=== PATIENT | male | born 1995 | race Caucasian/White ===

== ENCOUNTER 2025-07-16 09:16 | Emergency (ER) | payer BC, SELFPAY ==
--- OUTSIDE RECORDS SUMMARY | 2025-07-16 09:21 | XMS_ITS | Clinical Summary ---
Author Organization [facility] [address] Address [address] [place] [address] Phone Care Team Providers Care Globe Cleaner Name Role Phone GautamLewis ontiveros Ashlyn BROOKS Primary Care Provider [phone] Allergies Active Allergy Reactions Criticality Noted Date Comments Nickel Medications timolol (TIMOPTIC) 0.5 % ophthalmic solution 11/06/2020 Active penicillin v potassium (VEETID) 500 mg tabletIndication s:Other (complete free text reason below),Sore throat, exposure to strep Take 1 tablet (500 mg total) by mouth 4 (four) times a day for 7 days 28 tablet 07/10/2025 5 Active Active Problems Problem Noted Date Diagnosed Date Scrotal pain 04/03/2025 SETH (generalized anxiety disorder) 05/09/2024 Assessment & Plan (12/23/2024 7:02 PM CDT): CHRONIC AND STABLE OFF OF WELLBUTRIN NOW AND DOING WELL Assessment & Plan (05/09/2024 12:27 PM CDT): CHRONIC WILL CONTINUE WELLBUTRIN XL 150 MG PO QDAY HE HAS NOT NOTCIED ANY IMRPVMENTS MAY BE SUBLTE CHANGES DISCUSSED TO CONTINUE THE MED FOR ANOTHER 2 WEEKS BEFORE INCREASING THE DOSAGE TO 300 MG PO QDAY Benign paroxysmal positional vertigo due to bilateral vestibular disorder 05/09/2024 Assessment & Plan (12/23/2024 7:01 PM CDT): CHRONIC AND STABLE Assessment & Plan (05/09/2024 12:27 PM CDT): PERIPHERAL CAUSE IS SUSPECTED NEG MRI OF THE HEAD REFER TO ENT FOR FURTHER EVAL Tick bite of right deltoid region 01/04/2024 Assessment & Plan (01/04/2024 5:26 PM CDT): Tick was removed within a day There are no systemic symptoms Area examined did not show any remenants Topical cortisone would be ok for the time being Wearing long sleeves clothes / premthrin is ok and using topical cortisone prn is ok as well Throat irritation 01/04/2024 Assessment & Plan (01/04/2024 5:27 PM CDT): Symptoms are c/w LPR although there is no voice changes or loss / not typical symptoms of gerd trial of pepcid 20 mg po qam for at least one -two weeks if no improvement will refer to ent Rectal bleeding 07/01/2023 BP check 07/01/2023 Assessment & Plan (01/04/2024 5:30 PM CDT): Discussed intermittent fasting may be from 11 am to 7 pm, increase fluid / water intake aim for around 80 ounces of water daily , avoid eating after 7 pm and avoid alcohol he does drink beer may be around 6 over the weekend . Last three BP readings have been NL goal is 140/90 or less at this time/ discussed getting a bp machine at home check bp bid and call back with readings Viral pharyngitis 06/24/2022 Assessment & Plan (06/24/2022 9:28 AM SURVEY STATISTICIAN): Acute problem, present times about 5 days Physical examination as documented - no signs/symptoms of serious illness noted COVID 19 and influenza A/B in office - ALL negative Recommended supportive measures Orders for AMS STAFF to arrange None at this time Orders for Zaki Dupree to arrange Continue OTC cold/pain medications Start twice daily antihistamines to help with middle ear pressure/ache - nonsedating in the morning (Dorita, Zyrtec, or Claritin) and Benadryl at night; take twice daily during acute symptoms, up to 2 weeks, then decrease to once daily Consider starting OTC Flonase spray once daily to help with congestion and nasopharyngeal inflammation Consider lozenges for sore throat Consider warm tea with honey for sore throat Continue monitoring symptoms - report worsening or other concerning symptoms to the office Follow up as scheduled with Dr. Florez or sooner if necessary Lightheadedness 02/20/2021 Overview (02/20/2021): daily mri of the head neg refer to neurology trial of pamelor 10 mg po qhs Assessment & Plan (07/01/2024 9:04 AM SURVEY STATISTICIAN): 64 ounces of caffeine free and soda free fluid daily Good nutrition Multi-vitamin daily Assessment & Plan (02/20/2021 8:50 AM CDT): Patient describes a 1 year history of fluctuant but continuous lightheadedness. He knows of no alleviating or exacerbating factors. He has a normal neurologic examination in to date has had normal MRI imaging of the brain as well. I will check an MR angiogram of the brain to exclude vertebral basilar insufficiency as a potential etiology from a neurological standpoint. If unrevealing he may need cardiology evaluation as well of his PCP's preference. I will see him back in the office upon completion of testing. Tremor 02/20/2021 Assessment & Plan (02/20/2021 8:51 AM CDT): Patient describes a episodic tremor in the right hand only precipitated by writing. No evident tremor is seen today either spontaneous or inducible in the right hand. His historical description would be suggestive of a benign action tremor. I will check TSH and T4 to exclude thyroid abnormality as a potential etiology. If unrevealing observation would be most appropriate from the neurological standpoint as his tremor does not appear to be symptomatically debilitating. Routine physical examination 07/07/2018 Assessment & Plan (03/26/2024 12:32 PM CDT): IMMUNIZATIONS WERE REVIEWED TODAY DIETARY COUNSELLING FOR LEVEL 3 OBESITY SKIN ASSESSMENT NO SUSPICIOUS SKIN LESIONS SETH : WITH ASSOCIATED SYMPTOMS INCLUDING LIGHTHEAEDNESS AND VERTIGO TRIAL OF WELL BUTRIN XL 150 MG PO QAM RTC IN SIX WEEKS FOR A F/U MEANWHILE OK TO DO COUNSELLING Encounters Date Type Department Care Team Description 07/10/2025 Telephone [facility] [address] [place] [address] Lewis Florez MD from Last 3 Months Immunizations Immunization Administration Dates Next Due DTP 12/29/1998, 5,03/07/1994,01/24,1993 HPV, Quadrivalent 03/22/2012,01/01/2012 Hep A, Pediatric 10/24/2005,03/17/2005 Hep B, Adolescent or Pediatric 03/07/1994,1993,1993 HiB 07/24/1995, 4,01/24/1994,11/08 Influenza, Quadrivalent, Spl it, Preservative Free, Intramuscular 10/11/2022 Influenza, Unspecified 06/09/2024(Deferr ed: Patient Refused),06/04/2023(Deferred: Patient Refused) MMR 10/27/1997,09/20/1994 Meningococcal MCV4P (Menactra) 01/16/2011,2007 OPV 12/29/1998, 5,03/07/1994,01/24,1993 Td, adsorbed 03/17/2005 Tdap 10/11/2022,03/22/2012,10/24/2005 Varicella 03/11/2007,07/24/1995 Surgical History Surgery Date Site/Laterality Comments ORAL SURGERY COLONOSCOPY 09/11/2023 Medical History Medical History Date Comments Pigment dispersion syndrome of both eyes Family History Medical History Relation Name Comments Hypertension Father No Known Problems Mother Relation Name Status Comments Father Alive Mother Alive Social History Tobacco Use Types Packs/Day Years Used Date Smoking Tobacco: Never Smokeless Tobacco: Never Tobacco Cessation:Counseling Given: Not Answered Alcohol Use Standard Drinks/Week Comments Not Currently 0 (1 standard drink = 0.6 oz pur e alcohol) PHQ-2 Answer Date Recorded PHQ-2 Total Score (If total score is 3 or more points, staff should administer the PHQ-9) 0 04/03/2025 Personal Safety Answer Date Recorded Have you ever been in or are you currently in a harmful physical or emotional relationship or is someone making you feel afraid or unsafe? Denies 09/11/2023 Sex and Gender Information Value Date Recorded Sex Assigned at Not on file Legal Sex Male 2:14 PM SURVEY STATISTICIAN Gender Identity Male 08/27/2020 10:09 AM SURVEY STATISTICIAN Sexual Orientation Straight 08/27/2020 10 :09 AM SURVEY STATISTICIAN Last Filed Vital Signs Vital Sign Reading Time Taken Comments Blood Pressure 112/70 04/03/2025 1:07 PM CDT Pulse 75 04/03/2025 1:07 PM CDT Temperature 36.8 C (98.2 F) 04/03/2025 1:07 PM CDT Respiratory Rate 16 04/03/2025 1:07 PM CDT Oxygen Saturation 97% 04/03/2025 1:07 PM CDT Inhaled Oxygen Concentration - - Weight 121.7 kg (268 lb 6.4 oz) 04/03/2025 1:07 PM CDT Height 182.9 cm (6') 04/03/2025 1:07 PM CDT Body Mass Index 36.4 04/03/2025 1:07 PM CDT Plan of Treatment Health Maintenance Due Date Last Done Comments HPV Vaccines (3 - Male 3-dose series) 07/03/2012 03/22/2012, 01/01/2012 Regular Well Visit/Exam 18-64 03/25/2025 03/25/2024, 03/23/2023, 03/21/2022, Additional history exists Covid-19 Vaccine (3 - season) 2025 07/16/2021, 06/10/2021 Influenza Vaccine (#1) 2025 10/11/2022 Depression Screening 04/03/2026 04/03/2025, 03/25/2024, 03/21/2022 DTaP/Tdap/Td Vaccine (9 - Td or Tdap) 10/11/2032 10/11/2022, 03/22/2012, 10/24/2005, Additional history exists Hepatitis B Screening Completed 03/07/1994 , 1993, 1993 Varicella Vaccines Completed 03/11/2007, 07/24/1995 Hepatitis C Screening Completed 03/12/2015 Pneumococcal vaccine <65 Aged Out No longer eligible based on patient's age to complete this topic Procedures Procedure Name Priority Date/Time Associated Diagnosis Comments SERUM HEPATITIS C AB Routine 03/12/2015 4:36 PM CDT from Last 3 Months or Most Recently Relevant to Health Maintenance Results * Serum Hepatitis C ab (03/12/2015 4:36 PM CDT) HCV ab Negative Negative HISTORICAL RESULTS Serum 03/12/2015 4:36 PM CDT Lewis Florez MD LAB BLOOD ORDERABLES Final Result HISTORICAL RESULTS from Last 3 Months or Most Recently Relevant to Health Maintenance [place] [employer] [place] [employer] [place] [facility] [employer] [facility] Advance Directives For more information, please contact: [phone] * Full Code (Latest Code Status on File) Date Activated Date Inactivated Comments 09/11/2023 9:13 AM 09/11/2023 4:12 PM * Full Code Date Activated Date Inactivated Comments 09/11/2023 9:13 AM 09/11/2023 9:13 AM Care Teams Globe Cleaner Relationship Specialty Start Date End Date Lewis Florez MD [address] [place] [address] PCP - General 12/15/12
[2025-07-16 09:22] VITALS: BP 141/79; PULSE 57; RESP 20; TEMP 36.5; O2SAT 99
--- NOTE | 2025-07-16 09:33 | ED.EYEPROB ---
HPI - Eye Problem General Chief complaint: Eye Problems Stated complaint: poss pink eye Time Seen by Provider: 07/16/25 09:30 Source: patient and RN notes reviewed Mode of arrival: ambulatory Limitations: no limitations History of Present Illness HPI Narrative: 29-year-old male patient presents Express Care complaining of possible pinkeye to both of his eyes. Patient said symptoms started about 3 days ago in his left eye reports discharge, crusty eyes, redness, irritation, this morning woke up with symptoms in his right eye. Patient denies any vision changes, vision problems, pain, headaches, nausea vomiting, diarrhea, fevers, body aches, chills, any other upper respiratory symptoms. Patient is currently on penicillin for strep throat. Patient has a history of eye pigment disorder. Related Data Home Medications ?Medication ?Instructions ?Recorded ?Confirmed ?Last Taken ?Type penicillin V potassium 500 mg mg 07/16/25 Unknown History tablet timolol maleate 0.5 % eye drops drp 07/16/25 Unknown History Allergies Allergy/AdvReac Type Severity Reaction Status Date / Time No Known Allergies Allergy Verified 07/16/25 09:27 Review of Systems Review of Systems: CONSTITUTIONAL: Denies fever, chills, or sweats. EYES: Denies visual changes, photophobia, blurry vision, double vision. Positive for redness and discharge. ENT: Denies rhinorrhea, congestion, sore throat, or otalgia. CARDIOVASCULAR: Denies chest pain, palpitations, or edema. RESPIRATORY: Denies cough or dyspnea. GASTROINTESTINAL: Denies abdominal pain, nausea, vomiting, or diarrhea. GENITOURINARY: Denies dysuria or hematuria. SKIN: Denies rash or itching. MUSCULOSKELETAL: Denies back pain, joint pain, or myalgia. NEUROLOGIC: Denies headache, numbness, or weakness. PSYCHIATRIC: Denies anxiety or depression. All other systems reviewed are negative, except as documented in HPI. PMFSH Comments At the time of my signature, I reviewed and agree with the nursing past medical, surgical, social, and family history. There is no relevant family history pertinent to the patient complaint. Exam Narrative: GENERAL: This is a well-nourished, well-developed adult, in no apparent distress. They are non ill-appearing, nontoxic appearing. HEAD: normocephalic, atraumatic. EYES: Sclera clear/white. Conjunctiva injected bilaterally. No obvious discharge. Vision is grossly intact. Extraocular movements intact. Pupils PERRLA EARS: External ears normal, auditory canals clear and without drainage, TMs normal without perforation. Hearing grossly intact. NOSE: External nose normal with no obvious nasal discharge, nasal turbinates without redness, no rhinorrhea. THROAT: Mucous membranes moist, posterior pharynx clear, without erythema or swelling. Uvula midline. Postnasal drip present. NECK: Neck supple, non-tender without lymphadenopathy, masses or thyromegaly. CARDIOVASCULAR: Regular rate and rhythm RESPIRATORY: Respiratory rate normal, respiratory effort nonlabored, no respiratory distress SKIN: warm, Dry, intact with no suspicious lesions or rash, good texture and turgor. NEURO: awake, alert, and oriented to person, place and time. There were no obvious focal neurologic abnormalities. EXTREMITIES: No joint tenderness, effusion, or edema noted. BACK: Nontender without deformity. Course Course Emergency Course: Portions of this record may have been created with voice recognition software Level of Care: Express Care Visit Vital Signs Vital signs: Vital Signs Temperature 97.7 F 07/16/25 09:22 Pulse Rate 57 L 07/16/25 09:22 Respiratory Rate 20 07/16/25 09:22 Blood Pressure 141/79 H 07/16/25 09:22 Pulse Oximetry 99 07/16/25 09:22 Oxygen Delivery Room Air 07/16/25 09:22 Temperature 97.7 F 07/16/25 09:22 Pulse Rate 57 L 07/16/25 09:22 Respiratory Rate 20 07/16/25 09:22 Blood Pressure 141/79 H 07/16/25 09:22 Pulse Oximetry 99 07/16/25 09:22 Oxygen Delivery Room Air 07/16/25 09:22 Reviewed MDM - Eye Problem MDM Narrative Medical decision making narrative: Patient likely has a bacterial conjunctivitis to both of his eyes. Will prescribe polymyxin eye drops. Discussed physical exam findings. Advised supportive measures and signs/symptoms to go to the ER. Pt is appropriate for outpt treatment and f/u. Differential Diagnosis Differential diagnosis: Likely corneal abrasion, conjunctivitis and acute iritis Critical Care Time Critical Care Time Critical Care Time: No Discharge Plan Discharge Clinical Impression: Bacterial conjunctivitis Patient Disposition: Home Condition: Stable Instructions: Antibiotic Form, Conjunctivitis (ED) Additional Instructions: Your exam today shows Conjunctivitis, You have been given a prescription for eye drops. Use the eye drops as instructed. If you are not better in two (2) days, you need to follow up with an emergency room physician. Do not rub the eye or put anything else in the eye, this can cause abrasions (scratches) on the eye or lead to vision loss. Also it is important not to touch the tube or tip of drops to the eye, as this can cause further infection. Wash your hands very well before instilling the medication. Handwashing can help prevent the spread of disease. Follow up with PCP in 3-5 days Return to ER for any vision changes, double vision, severe eye pain, fevers, headaches, nausea, vomiting, or any serious concerns. Contact [facility] if you need an Water Pollution Control Technician Patient Language: Korean Prescriptions: New polymyxin B sulf-trimethoprim 10,000 unit- 1 mg/mL drops 1 drp EACH EYE Q3H 7 Days Qty: 10 0RF Rx Instructions: while awake; do not exceed 6 doses in 24 hours No Action penicillin V potassium 500 mg tablet timolol maleate 0.5 % drops Follow-up/Referrals: Gautam,MD Lewis [Primary Care Provider] Time of Disposition: 09:34
== END 2025-07-16 09:38 | disposition home or self-care (01) ==
PROVIDERS: PCP Internal Medicine Infectious Disease
DX: H10.9 Unspecified conjunctivitis (principal)
CPT/HCPCS: 99213; G0463